=== PATIENT | male | born 1985 ===

== ENCOUNTER 2017-01-03 12:05 | Emergency (ER) | payer SELFPAY ==
[2017-01-03 12:13] VITALS: BP 123/82
[2017-01-03] MEDS ORDERED: Bacitracin/Neomycin/Polymyxin B Oint 0.9 GM U/D Packet TOP ONE (12:46)
[2017-01-03] MEDS ORDERED: Diphtheria,Pertussis(Acell),Tetanus Vaccine 0.5 ML SDV IM ONE (12:46)
--- NOTE | 2017-01-03 13:02 | EDM.PDOC ---
ED HPI GENERAL MEDICAL PROBLEM - General Chief Complaint: Laceration Stated Complaint: laceration Time Seen by Provider: 01/03/17 12:42 Source of Information: Reports: Patient History Limitations: Reports: No Limitations - History of Present Illness INITIAL COMMENTS - FREE TEXT/NARRATIVE: Patient brought in for evaluation after sustaining small laceration to palm of right hand while at work today. Tetanus status unknown. No loss of function. No numbness or tingling. Past medical history overall unremarkable. Right Hand Pain Score (Numeric/FACES): 3 - Related Data Allergies Allergy/AdvReac Type Severity Reaction Status Date / Time No Known Allergies Allergy Verified 01/03/17 12:06 Home Meds: Home Meds . [No Known Home Meds] 01/03/17 [History] Past Medical History - Past Surgical History HEENT Surgical History: Reports: Oral Surgery GI Surgical History: Reports: Hernia, Abdominal Social & Family History - Tobacco Use Smoking Status *Q: Current Some Day Smoker Years of Tobacco use: 1 Packs/Tins Daily: 0.1 - Recreational Drug Use Drug Use in Last 12 Months: No ED ROS GENERAL - Review of Systems Review Of Systems: ROS reveals no pertinent complaints other than HPI. ED EXAM, SKIN/RASH Exam: See Below Exam Limited By: No Limitations General Appearance: Alert, WD/WN, No Apparent Distress Head: Atraumatic, Normocephalic Neck: Supple Respiratory/Chest: No Respiratory Distress Extremities: Other (Right palm shows 3cm laceration, very superficial, with only 1cm penatrating epidermis fully. Tendon function intact. Vascularly intact. ) Neurological: Alert, Oriented, Normal Gait, No Motor/Sensory Deficits Psychiatric: Normal Affect, Normal Mood Skin: Warm, Dry ED SKIN PROCEDURES - Laceration/Wound Repair Right Hand Lac/Wound length In cm: 3 Appearance: Superficial, Subcutaneous, Linear, Clean, Other (Only small portion in need of suturing) Distal NVT: Neuro & Vascular Intact, No Tendon Injury Anesthetic Type: Local Local Anesthesia - Lidocaine (Xylocaine): 1% Plain Local Anesthetic Volume: 2cc Skin Prep: Providone-Iodine (Betadine) Exploration/Debridement/Repair: Wound Explored, In a Bloodless Field, Explored to Base Closed with: Sutures Suture Size: 4-0 # of Sutures: 2 Suture Type: Nylon, Interrupted Drain Placement: No Sterile Dressing Applied: Nurse Tetanus Status Addressed: Yes Complications: No Course - Vital Signs Last Recorded V/S: Last Vital Signs Temp 36.9 C 01/03/17 12:11 Pulse 93 01/03/17 12:11 Resp 18 01/03/17 12:11 BP 123/82 01/03/17 12:11 Pulse Ox 99 01/03/17 12:11 - Orders/Labs/Meds Orders: Active Orders 24 hr Category Date Time Status Vaccines to be Administered [RC] PER UNIT ROUTINE Care 01/03/17 12:46 Ordered Meds: Medications Discontinued Medications Generic Name Dose Route Start Last Admin Trade Name Av PRN Reason Stop Dose Admin Diphtheria/Tetanus/Acell Pertussis 0.5 ml 01/03/17 12:46 01/03/17 12:52 Adacel IM 01/03/17 12:47 0.5 ml .ONCE ONE Administration Lidocaine HCl 5 ml 01/03/17 12:46 01/03/17 12:51 Xylocaine-Mpf 1% INJECT 01/03/17 12:47 5 ml ONETIME ONE Administration Neomycin/Polymyxin/Bacitracin 1 each 01/03/17 12:46 01/03/17 12:52 Triple Antibiotic Oint TOP 01/03/17 12:47 1 each ONETIME ONE Administration - Re-Assessments/Exams Free Text/Narrative Re-Assessment/Exam: 01/03/17 13:06 Wound repaired. Wound care discussed. Departure - Departure Time of Disposition: 13:07 Disposition: Home, Self-Care 01 Condition: Good Clinical Impression: Hand laceration Qualifiers: Encounter type: initial encounter Foreign body presence: without foreign body Laterality: right Qualified Code(s): S61.411A - Laceration without foreign body of right hand, initial encounter - Discharge Information Instructions: Stitches, [place], or Adhesive Wound Closure, [id number], VIS, Diphtheria, Tetanus, and Pertussis (DTaP) - CDC Referrals: PCP,Not In Area [Primary Care Provider] - Forms: ED Department Discharge Additional Instructions: Sutures out next Thursday. Call to make appointment for removal. You may come to our clinic in this hospital for the removal. Wound care as discussed. Follow up as needed if there are problems such as signs of infection. - My Orders Last 24 Hours: My Active Orders 01/03/17 12:46 Vaccines to be Administered [RC] PER UNIT ROUTINE - Assessment/Plan Last 24 Hours: My Active Orders 01/03/17 12:46 Vaccines to be Administered [RC] PER UNIT ROUTINE
== END 2017-01-03 13:15 | disposition home or self-care (01) ==
LOC: LL.ED 12:05
DX: S61.411A Laceration without foreign body of right hand, initial encounter (principal); F17.210 Nicotine dependence, cigarettes, uncomplicated; Z23 Encounter for immunization; W31.9XXA Contact with unspecified machinery, initial encounter; Y99.0 Civilian activity done for income or pay; Y92.69 Other specified industrial and construction area as the place of occurrence of the external cause
CPT/HCPCS: 12002; 90471; 90715; 99283